=== PATIENT | female | born 1960 | race Caucasian/White ===

== ENCOUNTER 2019-03-27 20:28 | Emergency (ER) | payer BC ==
[2019-03-27 22:55] LABS: URINE BLOOD (Dip) POC Negative (NEGATIVE); URINE GLUCOSE (Dip) POC Negative (NEGATIVE); URINE KETONES (Dip) POC Negative (NEGATIVE); URINE LEUKOCYTE EST (Dip) POC Trace (NEGATIVE); URINE NITRITE (Dip) POC Negative (NEGATIVE); URINE TOTAL PROTEIN POC Negative (NEGATIVE)
[2019-03-27] MEDS: ONDANSETRON 4 MG INJ IV (23:32)
[2019-03-27] MEDS: METHYLPREDNISOLONE 125 MG INJ IV (23:32)
[2019-03-27] MEDS: HYDROmorphONE 1 MG/ML SYG IV (23:32)
[2019-03-27] MEDS: KETOROLAC 15 MG INJ IV (23:32)
== END 2019-03-28 00:14 | disposition home or self-care (01) ==
LOC: E/R 03-28 00:14
DX: M54.42 Lumbago with sciatica, left side (principal); J45.909 Unspecified asthma, uncomplicated; M54.41 Lumbago with sciatica, right side
CPT/HCPCS: 81003; 96374; 96375; 99284-25